=== PATIENT | male | born 1950 | race Caucasian/White ===

== ENCOUNTER 2018-12-12 19:42 | Inpatient (IN) | payer MEDICARE ==
[~2018-12-12] VITALS: Ht 180.3 cm; Wt 130.1 kg
[2018-12-13 17:59] VITALS: BP 136/37
== END 2018-12-16 02:03 | disposition expired | DRG 871 ==
LOC: ED 20:32 → EDIP 20:44 → CCU 22:58 → 3NW 12-14 17:13
PROVIDERS: ADMIT Family Medicine; ATTEND Family Medicine
PROC: 02HV33Z Insertion of Infusion Device into Superior Vena Cava, Percutaneous Approach (ICD-10-PCS; 2018-12-12)
PROC: B548ZZA Ultrasonography of Superior Vena Cava, Guidance (ICD-10-PCS; 2018-12-12)
PROC: 5A1945Z Respiratory Ventilation, 24-96 Consecutive Hours (ICD-10-PCS; 2018-12-12)
PROC: 0BH17EZ Insertion of Endotracheal Airway into Trachea, Via Natural or Artificial Opening (ICD-10-PCS; 2018-12-12)
PROC: 30233K1 Transfusion of Nonautologous Frozen Plasma into Peripheral Vein, Percutaneous Approach (ICD-10-PCS; principal; 2018-12-13)
PROC: 0W9G3ZZ Drainage of Peritoneal Cavity, Percutaneous Approach (ICD-10-PCS; 2018-12-13)
PROC: 0T9B70Z Drainage of Bladder with Drainage Device, Via Natural or Artificial Opening (ICD-10-PCS; 2018-12-13)
DX: A41.9 Sepsis, unspecified organism (principal); J96.01 Acute respiratory failure with hypoxia; N17.0 Acute kidney failure with tubular necrosis; E43 Unspecified severe protein-calorie malnutrition; I81 Portal vein thrombosis; R65.21 Severe sepsis with septic shock; Z99.11 Dependence on respirator [ventilator] status; Z68.41 Body mass index [BMI] 40.0-44.9, adult; D61.818 Other pancytopenia; D62 Acute posthemorrhagic anemia; D68.4 Acquired coagulation factor deficiency; K76.6 Portal hypertension; K92.0 Hematemesis; K70.31 Alcoholic cirrhosis of liver with ascites; R65.20 Severe sepsis without septic shock; B19.20 Unspecified viral hepatitis C without hepatic coma; D75.89 Other specified diseases of blood and blood-forming organs; E16.2 Hypoglycemia, unspecified; E66.9 Obesity, unspecified; E83.51 Hypocalcemia; F10.20 Alcohol dependence, uncomplicated; Y90.9 Presence of alcohol in blood, level not specified; K70.40 Alcoholic hepatic failure without coma; N18.9 Chronic kidney disease, unspecified; Z51.5 Encounter for palliative care
CPT/HCPCS: 36415; 36600; 49083; 71045; 76700; 80048; 80053; 80074; 80307; 81001; 82042; 82140; 82330; 82533; 82550; 82570; 82607; 82803; 82962; 83605; 83735; 84100; 84157; 84300; 84443; 84478; 84484; 85014; 85018; 85025; 85610; 86850; 86900; 87040; 87070; 87077; 87081; 87086; 87186; 87205; 87521; 88112; 88305; 89051; 93005; 94002; 94003; 94640; 99291; C8929; G0378; J0610; J0696; J2250; J2354; J2543; J2704; J3411; J3430; J3475; J3480; J7042; J7060; J7070; J7620; P9047; C9113; J1815; J2060; J2270; J2370; J7040; J7050; P9017